=== PATIENT | male | born 1965 | race African-American/Black ===

== ENCOUNTER 2018-07-17 02:28 | Observation (INO) | payer SELFPAY ==
[2018-07-17] MEDS ORDERED: ASPIRIN 81 MG CHEWABLE TABLET ONE (03:21)
[2018-07-17 03:48] LABS: Absolute Monocytes 0.9 K/uL (0.1-1.3); Absolute Neutrophil 7.4 K/uL (1.8-8.0); Basophils % 0.5 % (0-1.3); Eosinophils % 1.5 % (0-4.4); Hematocrit 51.1 % (39.6-49.0); Lymphocytes % 10.2 % (15.3-44.8); MPV 7.7 fL (7.6-11.3); Monocytes % 9.3 % (3.3-12.3); RBC Red Blood Cell Count 5.32 M/uL (4.33-5.43)
[2018-07-17 04:08] LABS: Barbiturates NEGATIVE (NEGATIVE); Benzodiazepines NEGATIVE (NEGATIVE); Cocaine NEGATIVE (NEGATIVE); METHAMPHETAM POSITIVE (NEGATIVE); Methadone NEGATIVE (NEGATIVE); Opiates NEGATIVE (NEGATIVE); Phencyclidine NEGATIVE (NEGATIVE); THC Cannibis POSITIVE (NEGATIVE)
--- NOTE | 2018-07-17 04:33 | ER ---
Nurse's Notes [facility] Name: Jeremy Davis Age: 52 yrs Sex: Male : 1965 Arrival Date: 07/17/2018 Time: 02:29 Bed 13 Private MD: Diagnosis: Chest pain, unspecified;Adverse effect of amphetamines;Essential (primary) hypertension;Streptococcal pharyngitis Presentation: 07/17 02:38 Presenting complaint: Patient states: i have cough, congestion and sore throat and mg2 chest pain today. denies fever. Transition of care: patient was not received from another setting of care. Onset of symptoms was July 16, 2018. Risk Assessment: Do you want to hurt yourself or someone else? Patient reports no desire to harm self or others. Initial Sepsis Screen: Does the patient meet any 2 criteria? No. Patient's initial sepsis screen is negative. Does the patient have a suspected source of infection? No. Patient's initial sepsis screen is negative. Care prior to arrival: None. 02:38 Method Of Arrival: Ambulatory mg2 02:38 Acuity: PRASHANTH 4 mg2 Historical: - Allergies: 02:43 No Known Allergies; mg2 - Home Meds: 02:43 None [Active]; mg2 - PMHx: 02:43 None; mg2 - PSHx: 02:43 None; mg2 - Immunization history:: Flu vaccine status is unknown. - Social history:: Smoking status: Patient/guardian denies using tobacco, Patient uses alcohol, but reports only rare drinking. street drugs, marijuana. - Ebola Screening: : No symptoms or risks identified at this time. - Family history:: not pertinent. Screenin:44 Abuse screen: Denies threats or abuse. Denies injuries from another. Nutritional mg2 screening: No deficits noted. Tuberculosis screening: No symptoms or risk factors identified. Fall Risk None identified. Assessment: 03:10 General: Appears in no apparent distress. uncomfortable, Behavior is anxious. Pain: mg2 Complains of pain in chest Pain does not radiate. Quality of pain is described as aching, Pain began gradually. Neuro: Level of Consciousness is awake, alert, obeys commands, Oriented to person, place, time, situation. Cardiovascular: Capillary refill < 3 seconds Patient's skin is warm and dry. Respiratory: Airway is patent Respiratory effort is even, unlabored, Respiratory pattern is regular, symmetrical, Breath sounds are clear bilaterally. in right upper lobe, left upper lobe, right middle lobe, left lower lobe and right lower lobe. GI: No signs and/or symptoms were reported involving the gastrointestinal system. : No signs and/or symptoms were reported regarding the genitourinary system. EENT: No signs and/or symptoms were reported regarding the EENT system. Derm: Skin is intact, is healthy with good turgor, Skin is pink, warm \T\ dry. normal. Musculoskeletal: Circulation, motion, and sensation intact. Capillary refill < 3 seconds. 04:15 Reassessment: Patient appears in no apparent distress at this time. No changes from rr5 previously documented assessment. 04:45 Reassessment: Patient appears in no apparent distress at this time. Patient is alert, rr5 oriented x 3, equal unlabored respirations, skin warm/dry/pink. chatting with his digester capper. Patient states symptoms have improved. 04:50 Reassessment: Patient appears in no apparent distress at this time. patient looks calm, rr5 no complaints made, side rails secured. seen and examined by patient and family agreed for admission. 05:01 Reassessment: dominik [phone]. rr5 05:21 Reassessment: Patient appears in no apparent distress at this time. Patient is alert, rr5 oriented x 3, equal unlabored respirations, skin warm/dry/pink. Vital Signs: 02:41 Pulse 120; Resp 20; Temp 98.3; Pulse Ox 100% ; Weight 77.11 kg; Height 6 ft. 3 in. mg2 (190.50 cm); 02:43 BP 158 / 111; mg2 03:30 BP 155 / 108; Pulse 126; Resp 19; Pulse Ox 100% ; rr5 04:30 BP 161 / 115; Pulse 122; Resp 19; Pulse Ox 99% ; rr5 04:44 BP 151 / 105; Pulse 98; Resp 18; Pulse Ox 98% ; rr5 05:00 BP 124 / 82; Pulse 92; Resp 17; Pulse Ox 100% ; rr5 05:27 BP 112 / 81; Pulse 90; Resp 16; Pulse Ox 98% ; rr5 02:41 Body Mass Index 21.25 (77.11 kg, 190.50 cm) mg2 ED Course: 02:29 Patient arrived in ED. am2 02:41 Triage completed. mg2 02:55 EKG done, by ED staff. ag4 02:55 Flu and/or RSV swab sent to lab. Strep swab sent to lab. ag4 02:58 Issa Hankins MD is Attending Physician. aditya 03:07 Miguel Chance, VASQUEZ is Primary Nurse. rr5 03:12 Patient has correct armband on for positive identification. mg2 03:14 insurance claims representative on. Pulse ox on. NIBP on. rr5 03:15 Arm band placed on. rr5 03:29 Inserted saline lock: 22 gauge in right antecubital area, using aseptic technique. ag4 03:38 X-ray completed. Portable x-ray completed in exam room. Patient tolerated procedure kw well. 03:41 XRAY Chest (1 view) In Process Unspecified. EDMS 04:24 Sonam Borja MD is Hospitalizing Provider. aditya 05:30 No provider procedures requiring assistance completed. Patient admitted, IV remains in rr5 place. intact. 13:21 Note: NM STRESS TEST COMPLETE, PT TOLERATED WELL.. ml Administered Medications: 03:14 Drug: Aspirin 162 mg Route: PO; rr5 07:15 Follow up: Response: No adverse reaction rr5 04:25 Drug: Trandate 100 mg Route: PO; rr5 07:15 Follow up: Response: No adverse reaction rr5 04:30 Drug: NS 0.9% 500 ml Route: IV; Rate: bolus; Site: right antecubital; rr5 04:58 Follow up: Response: No adverse reaction; IV Status: Completed infusion; IV Intake: rr5 500ml 04:31 Drug: Ativan 1 mg Route: IVP; Site: right antecubital; rr5 07:14 Follow up: Response: No adverse reaction rr5 04:33 Drug: Trandate 20 mg Route: IVP; Site: right antecubital; rr5 07:15 Follow up: Response: No adverse reaction rr5 04:40 Drug: Bicillin L-A 1.2 million units Route: IM; Site: right gluteus; rr5 05:30 Follow up: Response: No adverse reaction rr5 04:43 Drug: Lovenox 1 mg/kg Route: Sub-Q; Site: right lower abdomen; rr5 07:14 Follow up: Response: No adverse reaction rr5 04:58 Drug: NS 0.9% 1000 ml Route: IV; Rate: 125 ml/hr; Site: right antecubital; rr5 07:00 Follow up: Response: No adverse reaction; IV Status: Completed infusion; Infusion rr5 continued upon admission; IV Intake: 250ml Intake: 04:58 IV: 500ml; Total: 500ml. rr5 07:00 IV: 250ml; Total: 750ml. rr5 Outcome: 04:32 Decision to Hospitalize by Provider. aditya 05:30 Admitted to ER Hold. Please see [facility] for further documentation. rr5 05:30 Condition: stable rr5 05:30 Instructed on the need for admit. 14:29 Patient left the ED. ss Signatures: Dispatcher [employer] EDIssa Barba MD MD cha Lopez, Melissa ml Smirch, Shelby, RN RN ss Raquel Almanzar Amanda am2 Stephen Mccullough RN RN mg2 Miguel Chance RN RN rr5 Cm Altamirano 4
--- NOTE | 2018-07-17 04:33 | EDPHYS ---
Physician Documentation [facility] Name: Jeremy Davis Age: 52 yrs Sex: Male : 1965 Arrival Date: 07/17/2018 Time: 02:29 Bed 13 Private MD: ED Physician Issa Hankins HPI: 07/17 03:05 This 52 yrs old Black Male presents to ER via Ambulatory with complaints of Congestion, aditya Chest Pain. 03:05 The patient or guardian reports chest pain that is located primarily in the anterior aditya chest wall. Onset: 2 day(s) ago. The pain does not radiate. Associated signs and symptoms: The patient has no apparent associated signs or symptoms. The chest pain is described as a pressure. Severity of pain: At its worst the pain was mild in the emergency department the pain is unchanged. Historical: - Allergies: 02:43 No Known Allergies; mg2 - Home Meds: 02:43 None [Active]; mg2 - PMHx: 02:43 None; mg2 - PSHx: 02:43 None; mg2 - Immunization history:: Flu vaccine status is unknown. - Social history:: Smoking status: Patient/guardian denies using tobacco, Patient uses alcohol, but reports only rare drinking. street drugs, marijuana. - Ebola Screening: : No symptoms or risks identified at this time. - Family history:: not pertinent. ROS: 03:05 Constitutional: Negative for fever, chills, and weight loss, Eyes: Negative for injury, aditya pain, redness, and discharge, ENT: Negative for injury, pain, and discharge, Neck: Negative for injury, pain, and swelling, Respiratory: Negative for shortness of breath, cough, wheezing, and pleuritic chest pain, Abdomen/GI: Negative for abdominal pain, nausea, vomiting, diarrhea, and constipation, Back: Negative for injury and pain, : Negative for injury, bleeding, discharge, and swelling, MS/Extremity: Negative for injury and deformity, Skin: Negative for injury, rash, and discoloration, Neuro: Negative for headache, weakness, numbness, tingling, and seizure, Psych: Negative for depression, anxiety, suicide ideation, homicidal ideation, and hallucinations, Allergy/Immunology: Negative for hives, rash, and allergies, Endocrine: Negative for neck swelling, polydipsia, polyuria, polyphagia, and marked weight changes, Hematologic/Lymphatic: Negative for swollen nodes, abnormal bleeding, and unusual bruising. 03:05 Cardiovascular: Positive for chest pain. Exam: 03:05 Constitutional: This is a well developed, well nourished patient who is awake, alert, aditya and in no acute distress. Head/Face: Normocephalic, atraumatic. Eyes: Pupils equal round and reactive to light, extra-ocular motions intact. Lids and lashes normal. Conjunctiva and sclera are non-icteric and not injected. Cornea within normal limits. Periorbital areas with no swelling, redness, or edema. ENT: Nares patent. No nasal discharge, no septal abnormalities noted. Tympanic membranes are normal and external auditory canals are clear. Oropharynx with no redness, swelling, or masses, exudates, or evidence of obstruction, uvula midline. Mucous membranes moist. Neck: Trachea midline, no thyromegaly or masses palpated, and no cervical lymphadenopathy. Supple, full range of motion without nuchal rigidity, or vertebral point tenderness. No Meningismus. Chest/axilla: Normal chest wall appearance and motion. Nontender with no deformity. No lesions are appreciated. Respiratory: Lungs have equal breath sounds bilaterally, clear to auscultation and percussion. No rales, rhonchi or wheezes noted. No increased work of breathing, no retractions or nasal flaring. Abdomen/GI: Soft, non-tender, with normal bowel sounds. No distension or tympany. No guarding or rebound. No evidence of tenderness throughout. Back: No spinal tenderness. No costovertebral tenderness. Full range of motion. Skin: Warm, dry with normal turgor. Normal color with no rashes, no lesions, and no evidence of cellulitis. MS/ Extremity: Pulses equal, no cyanosis. Neurovascular intact. Full, normal range of motion. Neuro: Awake and alert, GCS 15, oriented to person, place, time, and situation. Cranial nerves II-XII grossly intact. Motor strength 5/5 in all extremities. Sensory grossly intact. Cerebellar exam normal. Normal gait. Psych: Awake, alert, with orientation to person, place and time. Behavior, mood, and affect are within normal limits. 03:05 Cardiovascular: Rate: tachycardic, Rhythm: regular, Pulses: Pulses are 4+ in bilateral radial, brachial, femoral, popliteal, posterior tibial and and dorsalis pedis arteries.. Heart sounds: normal, JVD: is not appreciated. Vital Signs: 02:41 Pulse 120; Resp 20; Temp 98.3; Pulse Ox 100% ; Weight 77.11 kg; Height 6 ft. 3 in. mg2 (190.50 cm); 02:43 BP 158 / 111; mg2 03:30 BP 155 / 108; Pulse 126; Resp 19; Pulse Ox 100% ; rr5 04:30 BP 161 / 115; Pulse 122; Resp 19; Pulse Ox 99% ; rr5 04:44 BP 151 / 105; Pulse 98; Resp 18; Pulse Ox 98% ; rr5 05:00 BP 124 / 82; Pulse 92; Resp 17; Pulse Ox 100% ; rr5 05:27 BP 112 / 81; Pulse 90; Resp 16; Pulse Ox 98% ; rr5 02:41 Body Mass Index 21.25 (77.11 kg, 190.50 cm) mg2 MDM: 02:58 Patient medically screened. [facility] 03:09 Data reviewed: vital signs, nurses notes, lab test result(s), EKG, radiologic studies, aditya plain films. 07/17 02:38 Order name: Flu; Complete Time: 04:21 [facility] [place] 07/17 02:38 Order name: Strep; Complete Time: 04:21 [facility] [place] 07/17 03:04 Order name: Basic Metabolic Panel [facility] 07/17 03:04 Order name: CBC with Diff; Complete Time: 04:21 aditya 07/17 03:04 Order name: LFT's; Complete Time: 07:20 [facility] 07/17 03:04 Order name: Magnesium; Complete Time: 07:20 aditya 07/17 03:04 Order name: NT PRO-BNP; Complete Time: 07:20 aditya 07/17 03:04 Order name: PT-INR; Complete Time: 06:48 [facility] 07/17 03:04 Order name: Troponin (emerg Dept Use Only); Complete Time: 07:20 [facility] 07/17 03:04 Order name: Acetaminophen; Complete Time: 07:20 aditya 07/17 03:04 Order name: ETOH Level; Complete Time: 06:48 aditya 07/17 03:04 Order name: Ptt, Activated; Complete Time: 06:48 [facility] 07/17 03:04 Order name: Salicylate; Complete Time: 06:48 [facility] 07/17 03:04 Order name: Urine Drug Screen; Complete Time: 04:21 [facility] 07/17 03:04 Order name: XRAY Chest (1 view) [facility] 07/17 03:05 Order name: Basic Metabolic Panel; Complete Time: 07:20 [facility] 07/17 06:17 Order name: Troponin I [facility] 07/17 06:17 Order name: Troponin I [facility] 07/17 06:17 Order name: T4 Free [facility] 07/17 06:17 Order name: Thyroid Stimulating Hormone [facility] 07/17 06:17 Order name: Echo with Doppler [facility] 07/17 13:38 Order name: NM [facility] 07/17 03:04 Order name: EKG; Complete Time: 03:05 [facility] 07/17 03:04 Order name: Cardiac monitoring; Complete Time: 03:07 [facility] 07/17 03:04 Order name: EKG - Nurse/Tech; Complete Time: 03:07 [facility] 07/17 03:04 Order name: IV Saline Lock; Complete Time: 03:31 [facility] 07/17 03:04 Order name: Labs collected and sent; Complete Time: 03:08 [facility] 07/17 03:04 Order name: O2 Per Protocol; Complete Time: 03:08 [facility] 07/17 03:04 Order name: O2 Sat Monitoring; Complete Time: 03:08 [facility] 07/17 03:04 Order name: Urine Dipstick-Ancillary (obtain specimen); Complete Time: 03:45 [facility] 07/17 06:17 Order name: CONS Pharmacy Consult [facility] 07/17 06:17 Order name: [facility] Healthy EDDE Administered Medications: 03:14 Drug: Aspirin 162 mg Route: PO; rr5 07:15 Follow up: Response: No adverse reaction rr5 04:25 Drug: Trandate 100 mg Route: PO; rr5 07:15 Follow up: Response: No adverse reaction rr5 04:30 Drug: NS 0.9% 500 ml Route: IV; Rate: bolus; Site: right antecubital; rr5 04:58 Follow up: Response: No adverse reaction; IV Status: Completed infusion; IV Intake: rr5 500ml 04:31 Drug: Ativan 1 mg Route: IVP; Site: right antecubital; rr5 07:14 Follow up: Response: No adverse reaction rr5 04:33 Drug: Trandate 20 mg Route: IVP; Site: right antecubital; rr5 07:15 Follow up: Response: No adverse reaction rr5 04:40 Drug: Bicillin L-A 1.2 million units Route: IM; Site: right gluteus; rr5 05:30 Follow up: Response: No adverse reaction rr5 04:43 Drug: Lovenox 1 mg/kg Route: Sub-Q; Site: right lower abdomen; rr5 07:14 Follow up: Response: No adverse reaction rr5 04:58 Drug: NS 0.9% 1000 ml Route: IV; Rate: 125 ml/hr; Site: right antecubital; rr5 07:00 Follow up: Response: No adverse reaction; IV Status: Completed infusion; Infusion rr5 continued upon admission; IV Intake: 250ml Disposition: 07/17/18 04:32 Hospitalization ordered by Sonam Borja for Observation. Preliminary diagnosis are Chest pain, unspecified, Adverse effect of amphetamines, Essential (primary) hypertension, Streptococcal pharyngitis. - Bed requested for [facility] ER HOLD. - Status is Observation. ss - Condition is Fair. - Problem is new. - Symptoms have improved. UTI on Admission? No Signatures: Dispatcher [employer] EDMS Issa Hankins MD MD cha Smirch, Shelby, RN RN ss Stephen Mccullough RN RN mg2 Miguel Chance RN RN rr5 Irena De Leon ar5 Corrections: (The following items were deleted from the chart) 04:49 04:32 Hospitalization Ordered by Sonam Borja MD for Observation. Preliminary aditya diagnosis is Chest pain, unspecified; Adverse effect of amphetamines; Essential (primary) hypertension. Bed requested for Telemetry/MedSurg (observation). Status is Observation. Condition is Fair. Problem is new. Symptoms have improved. UTI on Admission? No. aditya 05:22 04:49 07/17/2018 04:32 Hospitalization Ordered by Sonam Borja MD for Observation. ar5 Preliminary diagnosis is Chest pain, unspecified; Adverse effect of amphetamines; Essential (primary) hypertension; Streptococcal pharyngitis. Bed requested for Telemetry/MedSurg (observation). Status is Observation. Condition is Fair. Problem is new. Symptoms have improved. UTI on Admission? No. aditya 14:29 05:22 07/17/2018 04:32 Hospitalization Ordered by Sonam Borja MD for Observation. ss Preliminary diagnosis is Chest pain, unspecified; Adverse effect of amphetamines; Essential (primary) hypertension; Streptococcal pharyngitis. Bed requested for [facility] ER HOLD. Status is Observation. Condition is Fair. Problem is new. Symptoms have improved. UTI on Admission? No. ar5
[2018-07-17] MEDS ORDERED: LORazepam 2 MG/ML VIAL ONE (04:40)
[2018-07-17] MEDS ORDERED: LABETALOL HCL 100 MG TAB ONE (04:40)
[2018-07-17] MEDS ORDERED: ENOXAPARIN 80 MG/0.8 ML SQ ONE (04:41)
[2018-07-17] MEDS ORDERED: LABETALOL 20 MG/4ML SYRINGE IV ONE (04:41)
[2018-07-17] MEDS ORDERED: NA CHLORIDE 0.9% 1,000 ML ONE (04:42)
[2018-07-17] MEDS ORDERED: PEN G BENZ LA 1.2MU/2ML SYRINGE IM ONE (04:42)
[2018-07-17] MEDS ORDERED: ACETAMINOPHEN 500 MG TAB PO PRN (06:13)
[2018-07-17] MEDS ORDERED: ONDANSETRON 4 MG/2 ML VIAL IV PRN (06:13)
[2018-07-17 06:42] LABS: Protime INR 1.04
[2018-07-17] MEDS ORDERED: NA CHLORIDE 0.9% 1,000 ML IV SCH (07:00)
[2018-07-17 07:07] LABS: ALT/SGPT 16 U/L (12-78); AST/SGOT 17 U/L (15-37); Albumin 3.5 g/dL (3.4-5.0); Alkaline Phosphatase 90 U/L (45-117); BUN Blood Urea Nitrogen 10 mg/dL (7-18); Bicarbonate 29 mmol/L (21-32); Bilirubin Direct 0.2 mg/dL (0-0.2); Bilirubin Total 0.9 mg/dL (0.2-1.0); Glucose Level 103 mg/dL (74-106); Magnesium 2.2 mg/dL (1.8-2.4); NT PRO-BNP 843 pg/mL (<125); Potassium 3.7 mmol/L (3.5-5.1); Protein, Total 8.1 g/dL (6.4-8.2); Sodium Level 134 mmol/L (136-145)
--- NOTE | 2018-07-17 08:15 | P.HP ---
Certification for Inpatient Patient admitted to: Observation With expected LOS: <2 Midnights Patient will require the following post-hospital care: None Practitioner: I am a practitioner with admitting privileges, knowledge of patient current condition, hospital course, and medical plan of care. Services: Services provided to patient in accordance with Admission requirements found in Title 42 Section 412.3 of the Code of Federal Regulations Patient History Date of Service: 07/17/18 Reason for admission: ALTERED MENTAL STATUS ALONG WITH TACHYCARDIA AND MALIGNANT HYPERTENSION History of Present Illness: Patient is a 52-year-old gentleman who presents to the emergency room with altered mentation and generalized weakness. He was not feeling well and not behaving right so his brought him to the emergency room. He apparently had been out partying and afterwards was feeling weak and short of breath. In the emergency room he was found to be tachycardic with heart rate in the 120s to 130s and a systolic blood pressure of 180 and diastolic blood pressure of 100. further workup revealed that he was positive for amphetamines as well as marijuana use. His alcohol level was positive as well. His troponins were mildly elevated. He was admitted to the hospital for further evaluation. Allergies No Known Allergies Allergy (Unverified 07/17/18 06:36) - Past Medical/Surgical History Has patient received pneumonia vaccine in the past: No Past Medical History: Patient denies medical history Past Surgical History: Patient denies surgical history - Family History Father Family History: Reviewed- Non-Contributory - Social History Smoking Status: Never smoker Alcohol use: No CD- Drugs: Yes Place of Residence: Home Review of Systems 10-point ROS is otherwise unremarkable Physical Examination - Vital Signs Temperature: 98 F Blood Pressure: 189/109 Pulse: 120 Respirations: 22 Pulse Ox (%): 96 - Physical Exam General: Alert, In no apparent distress, Oriented x2, Confused HEENT: Atraumatic, Normocephalic Neck: Supple, 2+ carotid pulse no bruit, JVD not distended, No Thyromegaly Respiratory: Clear to auscultation bilaterally, Normal air movement Cardiovascular: Regular rate/rhythm, Normal S1 S2, No murmurs Gastrointestinal: Normal bowel sounds, Soft and benign, Non-distended, No rebound, No guarding Musculoskeletal: No clubbing Integumentary: No rashes Neurological: Normal gait, Normal speech, Normal strength at 5/5 x4 extr, Normal tone, Sensation intact, Cranial nerves 3-12 intact - Studies Laboratory Data (last 24 hrs) 07/17/18 06:05: PT 12.3, INR 1.04, APTT 36.5 07/17/18 06:05: Sodium 134 L, Potassium 3.7, BUN 10, Creatinine 0.96, Glucose 103, Magnesium 2.2, Total Bilirubin 0.9, AST 17, ALT 16, Alkaline Phosphatase 90 07/17/18 03:25: WBC 9.4, Hgb 17.0, Hct 51.1 H, Plt Count 273 Microbiology Data (last 24 hrs): 07/17/18 02:50 Throat Group A Streptococcus Rapid Screen - Final 07/17/18 02:50 Nasopharnyx Influenza Type A Antigen Screen - Final 07/17/18 02:50 Nasopharnyx Influenza Type B Antigen Screen - Final Assessment & Plan - Problems (Diagnosis) (1) Altered mental status Current Visit: Yes Status: Acute (2) Malignant hypertension Current Visit: Yes Status: Acute (3) Polysubstance abuse Current Visit: Yes Status: Acute (4) Sinus tachycardia Current Visit: Yes Status: Acute - Plan Plan: 1. Serial troponins and EKG 2. IV hydration 3. Echocardiogram 4. Anti-platelet therapy, anti coagulation, beta-efra, statin, and O2 as needed 5. monitor on telemetry 6. possible discharge if the workup is otherwise unremarkable Discharge Plan: Home Plan to discharge in: 24 Hours - Advance Directives Does patient have a Living Will: No Does patient have a Durable POA for Healthcare: No - Code Status/Comfort Care Code Status Assessed: Yes Code Status: Full Code Critical Care: No Time Spent Managing PTS Care (In Minutes): 40
--- NOTE | 2018-07-17 08:16 | RAD REPORT ---
EXAM DESCRIPTION: Do Single View07/17/2018 3:40 am CLINICAL HISTORY: Cough COMPARISON: none FINDINGS: The lungs are hyperaerated. The lungs appear clear of acute infiltrate. The heart is normal size IMPRESSION: Hyper aerated lungs may indicate COPD. No acute abnormality is displayed
[2018-07-17] MEDS ORDERED: METOPROLOL TARTRATE 5 MG/5 ML INJ IV STA (08:28)
[2018-07-17] MEDS ORDERED: clonazePAM 1 MG TAB PO ONE (08:28)
[2018-07-17 09:57] LABS: Thyroid Stimulating Hormone 3.11 uIU/mL (0.360-3.740); Troponin I 0.08 ng/mL (0.0-0.045)
--- NOTE | 2018-07-17 10:13 | ECHO ---
HEIGHT: 6 ft 3 in WEIGHT: 169 lb 12.095 oz DATE OF STUDY: 07/17/[address]: Stoney Villatoro MD 2-DIMENSIONAL: YES M.MODE: YES DOPPLER: YES COLOR FLOW: YES TDS: NO PORTABLE: NO DEFINITY: NO BUBBLE STUDY: NO DIAGNOSIS: HYPERTENSION/ TACHYCARDIA CARDIAC HISTORY: CATHERIZATION: NO SURGERY: NO PROSTHETIC VALVE: NO PACEMAKER: NO MEASUREMENTS (cm) DIASTOLIC (NORMALS) SYSTOLIC (NORMALS) IVSd 1.1 (0.6-1.2) LA Diam 2.8 (1.9-4.0) LVEF 77% LVIDd 4.0 (3.5-5.7) LVIDs 2.2 (2.0-3.5) %FS 46% LVPWd 1.2 (0.6-1.2) Ao Diam 2.6 (2.0-3.7) 2 DIMENSIONAL ASSESSMENT: RIGHT ATRIUM: NORMAL LEFT ATRIUM: NORMAL RIGHT VENTRICLE: NORMAL LEFT VENTRICLE: NORMAL TRICUSPID VALVE: NORMAL MITRAL VALVE: NORMAL PULMONIC VALVE: NORMAL AORTIC VALVE: NORMAL PERICARDIAL EFFUSION: NONE AORTIC ROOT: NORMAL LEFT VENTRICULAR WALL MOTION: NORMAL. DOPPLER/COLOR FLOW: TRACE OF TRICUSPID REGURGITATION. NORMAL RIGHT VENTRICULAR SYSTOLIC PRESSURE. COMMENTS: NORMAL 2D ECHO. TRACE OF TRICUSPID REGURGITATION. TECHNOLOGIST: TIAGO TROTTER
--- NOTE | 2018-07-17 10:43 | EKG ---
Test Date: 2018-07-17 Test Time: 03:06:17 Lead Ingot Molder: BLADE MEASUREMENT RESULTS: Intervals: Rate: 118 [place]: 118 QRSD: 84 QT: 316 QTc: 442 [place]: P: 80 [place]: 118 QRS: 42 T: 56 INTERPRETIVE STATEMENTS: Sinus tachycardia Right atrial enlargement Voltage criteria for left ventricular hypertrophy Abnormal ECG No previous ECG available for comparison Electronically Signed On 07-17-18 10:42:28 CDT by Stoney Villatoro
[2018-07-17] MEDS ORDERED: REGADENOSON 0.4 MG/5 ML SYR IV ONE (11:14)
--- NOTE | 2018-07-17 13:38 | RAD REPORT ---
EXAM DESCRIPTION: NM - Rest Stress Cardiac Imaging - 07/17/2018 1:19 pm CLINICAL HISTORY: Chest pain. COMPARISON: None. TECHNIQUE: The patient was administered approximately 10mCi of Tc 99m Sestamibi prior to resting SPE CT imaging of the heart. The patient was then administered approximately 30 mCi of Tc 99m Sestamibi f ollowing exercise or pharmacologic stress. Multiplanar SPECT images were reviewed. FINDINGS: The stress images demonstrate moderate area of diminished radiotracer uptake involving the apical left ventricular myocardium. Rest images demonstrate partial reaccumulation of radiotracer. Moderate area of diminished radiotracer uptake within the inferior left ventricular myocardium on res t and stress images The left ventricular ejection fraction equals 43% IMPRESSION: Moderate partially reversible perfusion defect involving the apical left ventricular teja cardium may indicate an infarct with maria antonia-infarct ischemia Moderate apparent fixed perfusion defect involving the inferior left ventricular myocardium probably secondary to attenuation from the diaphragm. An infarct is a another consideration
--- NOTE | 2018-07-17 13:52 | TREADPHA ---
DX: CHEST PAIN Date of Study: 07/17/2018 Ht: 6 3 Wt: 169 lb 12.095 oz Consulting Physician: SRAVANTHI MEDICATIONS: TYLENOL, LOPRESSOR, ZOFRAN HISTORY: 52 YEAR OLD MALE HERE FOR CHEST PAIN. DENIES ANY SIGNIFICANT MEDICAL HISTORY. PHYSICIAL EXAMINATION: RESTING B.P.: 131/94 RESTING H.R.: 90 RESTING EKG: SINUS TACHYCARDIA, EARLY REPOLARIZATION. PROTOCOL: LEXISCAN EXERCISE TIME: 3:30 B.P. AT PEAK STRESS: 120/84 IMPRESSION: LEXISCAN STRESS TEST PERFORMED. CARDIOLITE INJECTED PER PROTOCOL. NO ARRHYTHMIAS NOTED. DENIES ANY PAIN. SEE NUCLEAR MEDICINE REPORT. NON DIAGNOSTIC EKG WITH LEXISCAN STRESS.
--- NOTE | 2018-07-17 15:05 | CON ---
History Of Present Illness: Mr. Davis came to the hospital because of chest pain. Chest pain was fle eting left pectoral and after the chest pain resolved, he came to the ER where EKGs and enzymes are w ithin normal limits. The patient has no history of myocardial infarction or stroke. His troponins a re 0.1 and 0.08, but we often find that those are false positives when they are at that level. He mullen s no previous history of heart disease, diabetes, hypertension, stroke, myocardial infarction. Denie s any tobacco use. Alcohol use minimal. No illegal drugs. Physical Examination: Vital Signs: 6 feet 3 inches, 169 pounds. HEENT: Normal. Lungs: Clear. Cardiac: Normal. Abdomen: Soft. Extremities: Normal. Normal distal pulses. Impression: My impression is that the troponins may actually indicate CAD or may be a false positive . I think it would really help us to do a pharmacologic nuclear stress test and echo before we decid e whether or not to do a cardiac cath on Mr. Davis. Thank you very much for your kind referral of Mr. Davis. I will follow him. NAPOLEON/BETY Voice ID: [id number] Report ID: [id number]
--- NOTE | 2018-07-17 15:05 | CON ---
Mr. Davis is 52. Yesterday, he was standing at a line in [facility] and he fainted. He had been standin g fairly still for 3 or 4 minutes when he fell. DICTATION ENDS HERE. NATAN Voice ID: [id number] Report ID: [id number]
[2018-07-17] MEDS ORDERED: METOPROLOL TAR 25 MG TAB PO SCH (18:00)
== END 2018-07-17 14:30 | disposition home or self-care (01) ==
LOC: ER 02:28 → ERHOLD 06:14
PROVIDERS: ADMIT Hospitalist; ATTEND Hospitalist
DX: R41.82 Altered mental status, unspecified (principal); I10 Essential (primary) hypertension; F12.10 Cannabis abuse, uncomplicated; F15.10 Other stimulant abuse, uncomplicated; R00.0 Tachycardia, unspecified; R07.9 Chest pain, unspecified
CPT/HCPCS: 36415; 71045; 78452; 80048; 80076; 80307; 80320; 80329; 83735; 83880; 84439; 84443; 84484; 85025; 85610; 85730; 87081; 87804; 93005; 93017; 93306; 96361; 96372; 96374; 96375; 99285; A9500; G0378; J0561; J1650; J2785; J7030

== ENCOUNTER 2018-07-18 22:19 | Emergency (ER) | payer SELFPAY ==
[2018-07-18] MEDS ORDERED: LORazepam 2 MG/ML VIAL ONE (22:58)
[2018-07-18 23:30] LABS: Absolute Lymphocytes (CBC) 1.1 K/uL (0.7-4.9); Absolute Monocytes 1.2 K/uL (0.1-1.3); Absolute Neutrophil 5.5 K/uL (1.8-8.0); Basophils % 0.7 % (0-1.3); Eosinophils % 1.1 % (0-4.4); Hematocrit 45.1 % (39.6-49.0); Lymphocytes % 14.1 % (15.3-44.8); MPV 8.1 fL (7.6-11.3); Monocytes % 15.4 % (3.3-12.3); Protime INR 1.07; RBC Red Blood Cell Count 4.74 M/uL (4.33-5.43)
[2018-07-18 23:49] LABS: Barbiturates NEGATIVE (NEGATIVE); Benzodiazepines NEGATIVE (NEGATIVE); Cocaine POSITIVE (NEGATIVE); METHAMPHETAM POSITIVE (NEGATIVE); Methadone NEGATIVE (NEGATIVE); Opiates NEGATIVE (NEGATIVE); Phencyclidine NEGATIVE (NEGATIVE); THC Cannibis POSITIVE (NEGATIVE)
[2018-07-18 23:49] LABS: ALT/SGPT 18 U/L (12-78); AST/SGOT 26 U/L (15-37); Albumin 3.9 g/dL (3.4-5.0); Alkaline Phosphatase 96 U/L (45-117); BUN Blood Urea Nitrogen 12 mg/dL (7-18); Bicarbonate 24 mmol/L (21-32); Bilirubin Direct 0.2 mg/dL (0-0.2); Bilirubin Total 1.2 mg/dL (0.2-1.0); Glucose Level 98 mg/dL (74-106); NT PRO-BNP 320 pg/mL (<125); Potassium 3.8 mmol/L (3.5-5.1); Protein, Total 8.7 g/dL (6.4-8.2); Sodium Level 133 mmol/L (136-145); Troponin (Emerg Dept Use Only) < 0.02 ng/mL (0.0-0.045)
[2018-07-18] MEDS ORDERED: NA CHLORIDE 0.9% 1,000 ML ONE (23:59)
[2018-07-19 00:11] LABS: Urine Blood 1+ (NEG); Urine Glucose NEGATIVE (NEG); Urine Protein 2+ (NEG); Urine Specific Gravity 1.025 (1.005-1.030); Urine pH 5.5 (5.0-7.0)
[2018-07-19] MEDS ORDERED: ALPRAZOLAM 0.25 MG TABLET PO PRN (01:24)
[2018-07-19] MEDS ORDERED: MORPHINE 4 MG/ML SYR IV PRN (01:24)
[2018-07-19] MEDS ORDERED: ACETAMINOPHEN 500 MG TAB PO PRN (01:24)
--- NOTE | 2018-07-19 01:58 | ER ---
Nurse's Notes [facility] Name: Jeremy Davis Age: 52 yrs Sex: Male : 1965 Arrival Date: 07/18/2018 Time: 22:20 Bed 30 Private MD: Diagnosis: Chest pain, unspecified;Cocaine abuse;Cannabis abuse Presentation: 07/18 22:31 Presenting complaint: EMS states: patient complains of chest pain while he was in a mg2 parking lot. he admitted to use weed, had some drinks, and cocaine last night. patient is extremely restless. EKG on scene was sinus tach 120 HR, BGL of 136 mg/dl. Transition of care:. Onset of symptoms was July 18, 2018. Risk Assessment: Do you want to hurt yourself or someone else? Patient reports no desire to harm self or others. Initial Sepsis Screen: Does the patient meet any 2 criteria? No. Patient's initial sepsis screen is negative. Does the patient have a suspected source of infection? No. Patient's initial sepsis screen is negative. Care prior to arrival: None. 22:31 Method Of Arrival: EMS: [place] [id number] 22:31 Acuity: PRASHANTH 3 mg2 Historical: - Allergies: 22:41 No Known Allergies; mg2 - Home Meds: 22:41 None [Active]; mg2 - PMHx: 22:41 Hypertension; mg2 - PSHx: 22:41 None; mg2 - Immunization history:: Flu vaccine status is unknown. - Social history:: Smoking status: unknown Patient uses alcohol, street drugs, cocaine, marijuana. - Ebola Screening: : No symptoms or risks identified at this time. Screenin:42 Abuse screen: Denies threats or abuse. Denies injuries from another. Nutritional mg2 screening: No deficits noted. Tuberculosis screening: No symptoms or risk factors identified. Fall Risk IV access (20 points). Assessment: 23:44 General: Appears in no apparent distress. uncomfortable, Behavior is anxious. Pain: mg2 Complains of pain in chest Pain does not radiate. Pain currently is 3 out of 10 on a pain scale. Quality of pain is described as aching, Pain began gradually, 4 hours ago. Is intermittent. Neuro: Level of Consciousness is awake, alert, obeys commands, Oriented to person, place, time, situation. Cardiovascular: Capillary refill < 3 seconds Patient's skin is warm and dry. Chest pain is described as mild. Respiratory: Airway is patent Respiratory effort is even, unlabored, Respiratory pattern is regular, symmetrical. GI: No signs and/or symptoms were reported involving the gastrointestinal system. : No signs and/or symptoms were reported regarding the genitourinary system. EENT: No deficits noted. Derm: Skin is intact, is healthy with good turgor, Skin is pink, warm \T\ dry. normal. Musculoskeletal: Circulation, motion, and sensation intact. Capillary refill < 3 seconds. 07/19 02:13 Reassessment: Dr Borja in to see pt and discuss admission. After he left pt stated that fc he wants to go home. Explained that he needs to be admitted. Discussed again with Dr Borja and he is requesting that pt be admitted. Once again spoke with pt and he is refusing to stay. Will see heart dr outside of hospital. Explained that he would have to sign out AMA. He states that he understands and still wants to leave. Attempting to contact Corine at [phone]. 02:43 Reassessment: came and was informed that patient wants to go AMA. millie countersigned the form. discharged in good condition, ambulatory. Vital Signs: 07/18 22:35 BP 159 / 146; Pulse 116; Resp 22; Temp 97.8; Pulse Ox 100% on R/A; Weight 83.91 kg; mg2 Height 6 ft. 1 in. (185.42 cm); Pain 4/10; 23:29 BP 142 / 94; Pulse 117; Resp 18; Pulse Ox 96% ; lt1 07/19 00:17 BP 137 / 91; Pulse 97; Resp 18; Pulse Ox 100% on R/A; mg2 00:17 BP 147 / 106; Pulse 96; Resp 19 S; Pulse Ox 98% on R/A; ca1 01:19 BP 148 / 94; Pulse 104; Resp 18; Pulse Ox 98% on R/A; mg2 07/18 22:35 Body Mass Index 24.41 (83.91 kg, 185.42 cm) mg2 ED Course: 07/18 22:20 Patient arrived in ED. ds1 22:29 Stephen Mccullough, VASQUEZ is Primary Nurse. mg2 22:31 Royal Qiu MD is Attending Physician. tw4 22:35 Triage completed. mg2 22:42 Arm band placed on. mg2 22:43 No provider procedures requiring assistance completed. Maintain EMS IV. Dressing mg2 intact. Good blood return noted. Site clean \T\ dry. Gauge \T\ site: 18 \T\ RFA. Patient maintains SpO2 saturation greater than 95% on room air. 23:06 XRAY Chest (1 view) In Process Unspecified. EDMS 23:45 Patient has correct armband on for positive identification. shelter monitor on. Pulse mg2 ox on. NIBP on. 07/19 01:01 Repeat lab(s) drawn. by me, sent to lab. mg2 01:51 Sonam Borja MD is Hospitalizing Provider. tw4 02:45 IV discontinued, intact, bleeding controlled, No redness/swelling at site. Pressure mg2 dressing applied. Administered Medications: 07/18 23:14 Drug: Ativan 1 mg Route: IVP; Site: right forearm; mg2 07/19 00:17 Follow up: Response: No adverse reaction; Marked relief of symptoms mg2 07/18 23:44 Drug: NS 0.9% 1000 ml Route: IV; Rate: 1 bolus; Site: right forearm; mg2 07/19 02:46 Follow up: Response: No adverse reaction; IV Status: Completed infusion mg2 Outcome: 01:57 Decision to Hospitalize by Provider. tw4 02:45 AMA AMA form signed mg2 02:45 Condition: stable 02:45 Discharge instructions given to patient, , patient left against medical advice Instructed on discharge instructions, Demonstrated understanding of instructions. 02:46 Patient left the ED. mg2 Signatures: Dispatcher [employer] EDND Claire Chery RN RN fc Sanford, Demi ds1 Royal Qiu MD MD tw4 Stephen Mccullough RN RN mg2 Sisi Alejandra RN RN [facility] Lashae Darling lt1
--- NOTE | 2018-07-19 01:58 | EDPHYS ---
Physician Documentation [facility] Name: Jeremy Davis Age: 52 yrs Sex: Male : 1965 Arrival Date: 07/18/2018 Time: 22:20 Bed 30 Private MD: ED Physician Royal Qiu HPI: 07/19 05:39 This 52 yrs old Black Male presents to ER via EMS with complaints of Chest Pain. tw4 05:39 The patient or guardian reports chest pain that is located primarily in the anterior tw4 chest wall, left. Onset: today. The pain does not radiate. Associated signs and symptoms: The patient has no apparent associated signs or symptoms. The chest pain is described as sharp. Duration: The patient or guardian reports a single episode. Severity of pain: At its worst the pain was moderate in the emergency department the pain has improved. The patient has experienced similar episodes in the past. The patient has been recently seen at the [facility] Emergency Department, last week, for similar complaints labs were performed, X-rays were performed. Historical: - Allergies: 07/18 22:41 No Known Allergies; mg2 - Home Meds: 22:41 None [Active]; mg2 - PMHx: 22:41 Hypertension; mg2 - PSHx: 22:41 None; mg2 - Immunization history:: Flu vaccine status is unknown. - Social history:: Smoking status: unknown Patient uses alcohol, street drugs, cocaine, marijuana. - Ebola Screening: : No symptoms or risks identified at this time. ROS: 07/19 05:39 Constitutional: Negative for fever, chills, and weight loss, Eyes: Negative for injury, tw4 pain, redness, and discharge, Respiratory: Negative for shortness of breath, cough, wheezing, and pleuritic chest pain, Abdomen/GI: Negative for abdominal pain, nausea, vomiting, diarrhea, and constipation, Back: Negative for injury and pain, MS/Extremity: Negative for injury and deformity, Skin: Negative for injury, rash, and discoloration, Neuro: Negative for headache, weakness, numbness, tingling, and seizure. Cardiovascular: Positive for chest pain, Negative for edema, orthopnea, palpitations. Exam: 05:39 Constitutional: This is a well developed, well nourished patient who is awake, alert, tw4 and in no acute distress. Head/Face: Normocephalic, atraumatic. Chest/axilla: Normal chest wall appearance and motion. Nontender with no deformity. No lesions are appreciated. Cardiovascular: Regular rate and rhythm with a normal S1 and S2. No gallops, murmurs, or rubs. Normal PMI, no JVD. No pulse deficits. Respiratory: Lungs have equal breath sounds bilaterally, clear to auscultation and percussion. No rales, rhonchi or wheezes noted. No increased work of breathing, no retractions or nasal flaring. Abdomen/GI: Soft, non-tender, with normal bowel sounds. No distension or tympany. No guarding or rebound. No evidence of tenderness throughout. Back: No spinal tenderness. No costovertebral tenderness. Full range of motion. MS/ Extremity: Pulses equal, no cyanosis. Neurovascular intact. Full, normal range of motion. Neuro: Awake and alert, GCS 15, oriented to person, place, time, and situation. Cranial nerves II-XII grossly intact. Motor strength 5/5 in all extremities. Sensory grossly intact. Cerebellar exam normal. Normal gait. Vital Signs: 07/18 22:35 BP 159 / 146; Pulse 116; Resp 22; Temp 97.8; Pulse Ox 100% on R/A; Weight 83.91 kg; mg2 Height 6 ft. 1 in. (185.42 cm); Pain 4/10; 23:29 BP 142 / 94; Pulse 117; Resp 18; Pulse Ox 96% ; lt1 07/19 00:17 BP 137 / 91; Pulse 97; Resp 18; Pulse Ox 100% on R/A; mg2 00:17 BP 147 / 106; Pulse 96; Resp 19 S; Pulse Ox 98% on R/A; ca1 01:19 BP 148 / 94; Pulse 104; Resp 18; Pulse Ox 98% on R/A; mg2 07/18 22:35 Body Mass Index 24.41 (83.91 kg, 185.42 cm) mg2 MDM: 07/18 22:31 Patient medically screened. tw4 07/19 05:39 Differential diagnosis: abnormal EKG, acute myocardial infarction, herpes zoster, tw4 pulmonary embolus, stable angina, thoracic aortic disection. Data reviewed: vital signs, nurses notes. Data interpreted: quality assurance monitor body: rhythm is normal sinus rhythm. Counseling: I had a detailed discussion with the patient and/or guardian regarding: the historical points, exam findings, and any diagnostic results supporting the discharge/admit diagnosis. Special discussion: I discussed with the patient/guardian in detail that at this point there is no indication for admission to the hospital. It is understood, however, that if the symptoms persist or worsen the patient needs to return immediately for re-evaluation. 07/18 22:32 Order name: Basic Metabolic Panel [facility] 07/18 22:32 Order name: CBC with Diff [facility] 07/18 22:32 Order name: LFT's [facility] 07/18 22:32 Order name: Magnesium [facility] 07/18 22:32 Order name: NT PRO-BNP [facility] 07/18 22:32 Order name: PT-INR [facility] 07/18 22:32 Order name: Troponin (emerg Dept Use Only) [facility] 07/18 22:32 Order name: Acetaminophen [facility] 07/18 22:32 Order name: ETOH Level [facility] 07/18 22:32 Order name: Salicylate [facility] 07/18 22:32 Order name: Urine Drug Screen [facility] 07/18 23:18 Order name: Urine Dipstick--Ancillary (enter results) [facility] 07/19 00:22 Order name: Troponin (emerg Dept Use Only): \T\ 0100 mg2 07/19 01:27 Order name: Basic Metabolic Panel [facility] 07/18 22:32 Order name: XRAY Chest (1 view) [facility] 07/18 22:32 Order name: EKG; Complete Time: 22:33 [facility] 07/18 22:32 Order name: Cardiac monitoring; Complete Time: 23:14 [facility] 07/18 22:32 Order name: EKG - Nurse/Tech; Complete Time: 23:14 [facility] 07/18 22:32 Order name: IV Saline Lock; Complete Time: 23:14 [facility] 07/18 22:32 Order name: Labs collected and sent; Complete Time: 23:14 [facility] 07/19 01:27 Order name: Basic Metabolic Panel [facility] 07/19 01:27 Order name: CBC with Automated Diff [facility] 07/19 01:27 Order name: CBC with Automated Diff [facility] 07/19 01:27 Order name: Lipid Profile [facility] 07/19 01:27 Order name: Troponin I [facility] 07/19 01:28 Order name: CONS Physician Consult EDDC 07/18 22:32 Order name: O2 Per Protocol; Complete Time: 23:14 tw4 07/18 22:32 Order name: O2 Sat Monitoring; Complete Time: 23:14 tw4 EC:10 Rate is 115 beats/min. Rhythm is regular, Sinus tachycardia. QRS [place] is Normal. [place] tw4 interval is normal. QRS interval is normal. QT interval is normal. No Q waves. No ST changes noted. Clinical impression: Normal ECG. Interpreted by me. Reviewed by me. Administered Medications: 07/18 23:14 Drug: Ativan 1 mg Route: IVP; Site: right forearm; mg2 07/19 00:17 Follow up: Response: No adverse reaction; Marked relief of symptoms mg2 07/18 23:44 Drug: NS 0.9% 1000 ml Route: IV; Rate: 1 bolus; Site: right forearm; mg2 07/19 02:46 Follow up: Response: No adverse reaction; IV Status: Completed infusion mg2 Disposition: 07/19/18 01:57 Hospitalization ordered by Sonam Borja for Observation. Preliminary diagnosis are Chest pain, unspecified, Cocaine abuse, Cannabis abuse. - Bed requested for Telemetry/MedSurg (observation). - Status is Observation. mg2 - Condition is Fair. - Problem is an ongoing problem. - Symptoms are unchanged. UTI on Admission? No Signatures: Dispatcher [employer] EDDC Brianne Guo RN RN Royal Mejia MD MD tw4 Stephen Mccullough RN RN mg2 Corrections: (The following items were deleted from the chart) 01:58 01:57 Hospitalization Ordered by Sonam Borja MD for Observation. Preliminary mw diagnosis is Chest pain, unspecified; Cocaine abuse; Cannabis abuse. Bed requested for Telemetry/MedSurg (observation). Status is Observation. Condition is Fair. Problem is an ongoing problem. Symptoms are unchanged. UTI on Admission? No. tw4 02:01 01:58 07/19/2018 01:57 Hospitalization Ordered by Sonam Borja MD for Observation. caleb Preliminary diagnosis is Chest pain, unspecified; Cocaine abuse; Cannabis abuse. Bed requested for Telemetry/MedSurg (observation). Status is Observation. Condition is Fair. Problem is an ongoing problem. Symptoms are unchanged. UTI on Admission? No. mw 02:46 02:01 07/19/2018 01:57 Hospitalization Ordered by Sonam Borja MD for Observation. mg2 Preliminary diagnosis is Chest pain, unspecified; Cocaine abuse; Cannabis abuse. Bed requested for Telemetry/MedSurg (observation). Status is Observation. Condition is Fair. Problem is an ongoing problem. Symptoms are unchanged. UTI on Admission? No. mw
--- NOTE | 2018-07-19 07:43 | EKG ---
Test Date: 2018-07-18 Test Time: 22:23:29 Grounds Person: CHRISTINT MEASUREMENT RESULTS: Intervals: Rate: 115 WV: 122 QRSD: 84 QT: 334 QTc: 462 Lester: P: 80 WV: 122 QRS: 71 T: 47 INTERPRETIVE STATEMENTS: Sinus tachycardia Right atrial enlargement Moderate voltage criteria for LVH, may be normal variant Borderline ECG Compared to ECG 07/17/2018 03:06:17 No significant changes Electronically Signed On 07-19-18 07:42:20 CDT by Stoney Villatoro
--- NOTE | 2018-07-19 08:23 | RAD REPORT ---
EXAM DESCRIPTION: RAD - Chest Single View - 07/18/2018 11:08 pm CLINICAL HISTORY: Chest pain COMPARISON: July 17 TECHNIQUE: AP portable chest image was obtained 2303 hours . FINDINGS: No focal mass or consolidation. Interstitial pattern is not significantly different from c omparison. No failure or volume overload. Heart and vasculature are normal. No measurable pleural eff usion and no pneumothorax. No acute bony abnormality seen. No acute aortic findings suspected. IMPRESSION: No acute cardiopulmonary process. Chest is similar to July 17
[2018-07-19] MEDS ORDERED: ENOXAPARIN 40 MG/0.4 ML SQ SCH (09:00)
== END 2018-07-19 02:45 | disposition home or self-care (01) ==
LOC: ER 22:19 → UNDOADMOB 07-19 01:41 → ERHOLD 07-19 01:41 → UNDODISOB 07-19 02:45 → ER 07-19 02:45
DX: F14.10 Cocaine abuse, uncomplicated (principal); F12.10 Cannabis abuse, uncomplicated; I10 Essential (primary) hypertension
CPT/HCPCS: 36415; 71045; 80048; 80076; 80307; 80320; 80329; 81003; 83735; 83880; 84484; 85025; 85610; 93005; 96361; 96374; 99285; J7030